=== PATIENT | male | born 1960 | race Caucasian/White ===

== ENCOUNTER 2017-01-18 08:28 | Emergency (ER) | payer OTHER ==
[2017-01-18] MEDS ORDERED: DEXAMETHASONE 10 MG/ML VIAL PO STA (11:55)
[2017-01-18] MEDS ORDERED: CHERRY SYRUP 10 ML UDC PO ONE (11:58)
[2017-01-18] MEDS ORDERED: DEXAMETHASONE 10 MG/ML VIAL ONE (11:58)
== END 2017-01-18 13:11 | disposition home or self-care (01) ==
DX: R07.89 Other chest pain (principal); H66.002 Acute suppurative otitis media without spontaneous rupture of ear drum, left ear; I48.91 Unspecified atrial fibrillation; Z87.442 Personal history of urinary calculi; Z79.82 Long term (current) use of aspirin
CPT/HCPCS: 36415; 71020; 80053; 81003; 83690; 84484; 85025; 99283; 99284; A9270

== ENCOUNTER 2017-01-19 21:40 | Emergency (ER) | payer OTHER ==
[2017-01-19] MEDS ORDERED: KETOROLAC 60 MG/2 ML VIAL IM STA (22:30)
[2017-01-19] MEDS ORDERED: oxyCOD/ACETAMIN 5 MG/325 MG TABLET PO STA (22:30)
[2017-01-19] MEDS ORDERED: KETOROLAC 60 MG/2 ML VIAL ONE (22:34)
[2017-01-19] MEDS ORDERED: oxyCOD/ACETAMIN 5 MG/325 MG TABLET PO ONE (22:34)
[2017-01-20] MEDS ORDERED: IOPAMIDOL-300 100 ML VIAL IVP ONE (01:22)
[2017-01-20] MEDS ORDERED: oxyCODONE/ACET 5/325 Prepack 4 PO ONE (02:04)
[2017-01-20] MEDS ORDERED: oxyCODONE/ACET 5/325 Prepack 4 PO STA (02:08)
== END 2017-01-20 02:09 | disposition home or self-care (01) ==
DX: R07.89 Other chest pain (principal); X50.0XXA Overexertion from strenuous movement or load, initial encounter; Y99.0 Civilian activity done for income or pay; I45.10 Unspecified right bundle-branch block; Z79.82 Long term (current) use of aspirin
CPT/HCPCS: 36415; 71275; 80053; 83690; 84484; 85025; 93005; 93010; 96372; 99284; A9270; Q9967

== ENCOUNTER 2017-03-02 16:10 | Outpatient (CLI) | payer OTHER | END 2017-03-02 16:11 | disposition short-term general hospital (02) | DX: R00.2 Palpitations (principal) | CPT/HCPCS: A0425; A0427 ==

== ENCOUNTER 2018-05-31 02:50 | Emergency (ER) | payer OTHER ==
[2018-05-31] MEDS ORDERED: diltiaZEM INJ 5 MG/ML VIAL IVP STA (03:00)
[2018-05-31 03:14] LABS: BASOPHILS # (AUTO) 0.1 10^3/uL (0.0-0.1); BASOPHILS % (AUTO) 1.2 %; EOSINOPHILS # (AUTO) 0.4 10^3/uL (0.0-0.7); EOSINOPHILS % (AUTO) 5.9 %; HGB - HEMOGLOBIN 16.6 g/dL (14.0-18.0); LYMPHOCYTES # (AUTO) 3.3 10^3/uL (1.5-3.5); MEAN CORPUSCULAR HEMOGLOBIN 31.6 pg (27.0-31.0); MEAN CORPUSCULAR HGB CONC 34.8 g/dL (32.0-36.0); MEAN CORPUSCULAR VOLUME 90.8 fL (80.0-94.0); MEAN PLATELET VOLUME 7.8 fL (7.4-11.4); MONOCYTES # (AUTO) 0.6 10^3/uL (0.0-1.0); MONOCYTES % (AUTO) 7.9 %; NEUTROPHILS # (AUTO) 3.1 10^3/uL (1.5-6.6); PLT - PLATELET COUNT 174 10^3/uL (130-450); RED BLOOD COUNT 5.26 10^6/uL (4.70-6.10); RED CELL DISTRIBUTION WIDTH 13.8 % (12.0-15.0); WHITE BLOOD COUNT 7.5 x10^3/uL (4.8-10.8)
[2018-05-31 03:25] LABS: ALBUMIN 4.5 g/dL (3.2-5.5); ALBUMIN/GLOBULIN RATIO 1.3 (1.0-2.2); BILIRUBIN,TOTAL 0.4 mg/dL (0.2-1.0); CALCIUM 8.7 mg/dL (8.5-10.3); CREATININE 0.9 mg/dL (0.6-1.2); MAGNESIUM 2.5 mg/dL (1.7-2.8); TOTAL PROTEIN 7.9 g/dL (6.7-8.2)
[2018-05-31] MEDS ORDERED: RIVAROXABAN 10 MG TABLET PO STA (04:37)
--- NOTE | 2018-05-31 05:02 | ED Physician Documentation ---
History of Present Illness - Stated complaint Stated Complaint: RAPID HEART RATE - Chief complaint Chief Complaint: Cardiac - History obtained from History obtained from: Patient, Family - Additonal information Additional information: 57-year-old male with a history of paroxysmal atrial fibrillation presented to the emergency department with a rapid heart rate which he awoke with this morning. The patient was recently seen at another emergency department for similar symptoms. The patient normally lives in sinus rhythm and does follow with cardiology and is on rate control medications. Yesterday evening the patient took his normal medications and consumed alcohol. This morning the patient awoke with a rapid heart rate and palpitations. Symptoms are described as moderate. Symptoms are similar to other episodes of atrial fibrillation she is experienced in the past. No other associated symptoms. Review of Systems Constitutional: denies: Fever, Chills Eyes: denies: Discharge Ears: denies: Ear pain Nose: denies: Congestion Throat: denies: Sore throat Cardiac: reports: Palpitations Respiratory: denies: Cough GI: denies: Abdominal Pain : denies: Dysuria Skin: denies: Laceration (s) Musculoskeletal: denies: Neck pain Neurologic: denies: Generalized weakness Immunocompromised: denies: Chemotherapy PD PAST MEDICAL HISTORY - Past Medical History Past Medical History: Yes Cardiovascular: Atrial fibrillation, Other Respiratory: None Endocrine/Autoimmune: None : Kidney stones Derm: None - Past Surgical History Past Surgical History: Yes Ortho: Arthroscopic surgery, Other Cardiovascular: Other HEENT: Tonsil/Adenoidectomy - Present Medications Home Medications: Ambulatory Orders Medication Instructions Recorded Confirmed Aspirin 81 mg PO DAILY 01/18/15 01/19/17 Losartan [Cozaar] 50 mg PO DAILY 01/18/15 01/19/17 Atorvastatin Calcium 20 mg PO DAILY 01/18/17 01/19/17 Diltiazem HCl [Diltiazem ER] 360 mg PO DAILY 01/18/17 01/19/17 Propafenone HCl 225 mg PO BID 05/31/18 05/31/18 Rivaroxaban [Xarelto] 20 mg PO DAILY #30 tablet 05/31/18 - Allergies Allergies/Adverse Reactions: Allergies Allergy/AdvReac Type Severity Reaction Status Date / Time lisinopril Allergy Unknown Verified 05/31/18 03:17 pseudoephedrine HCl * Allergy Unknown Verified 05/31/18 03:17 [From Sudafed] - Social History Does the pt smoke?: No Smoking Status: Never smoker Does the pt drink ETOH?: Yes Does the pt have substance abuse?: No - Immunizations Immunizations are current?: Yes - POLST Patient has POLST: No PD ED PE NORMAL - General General: Alert and oriented X 3, No acute distress - HEENT HEENT: Atraumatic, PERRL, EOMI, Ears normal - Neck Neck: Supple, no meningeal sign - Respiratory Respiratory: No respiratory distress, Clear bilaterally - Derm Derm: Normal color - Extremities Extremities: No deformity, No edema - Neuro Neuro: Alert and oriented X 3, Normal speech - Psych Psych: Normal affect PD ED PE EXPANDED - Cardiac Cardiac: Tachy, Irregularly irregular, Radial strong equal Results - Vitals Vitals: Vital Signs - 24 hr 05/31/18 05/31/18 05/31/18 02:50 03:10 03:14 Temperature 36.1 C L Heart Rate 143 H 106 H 93 Respiratory 13 17 14 Rate Blood Pressure 153/87 H 132/88 H 102/71 O2 Saturation 94 93 95 05/31/18 05/31/18 05/31/18 03:19 03:24 03:35 Temperature Heart Rate 94 76 73 Respiratory 16 17 14 Rate Blood Pressure 134/65 H 113/65 118/69 O2 Saturation 95 93 95 05/31/18 05/31/18 03:59 04:43 Temperature 36.2 C L Heart Rate 66 81 Respiratory 17 18 Rate Blood Pressure 118/69 124/87 H O2 Saturation 94 96 Oxygen O2 Source Room air - EKG (time done) 02: 57 Rate: Rate (enter#) Rhythm: Atrial fibrillation Intervals: QRS normal Ischemia: Non specific changes - Labs Labs: Laboratory Tests 05/31/18 05/31/18 05/31/18 03:00 03:00 03:00 WBC 7.5 RBC 5.26 Hgb 16.6 Hct 47.8 MCV 90.8 MCH 31.6 H MCHC 34.8 RDW 13.8 Plt Count 174 MPV 7.8 Neut # (Auto) 3.1 Lymph # (Auto) 3.3 Dare # (Auto) 0.6 Eos # (Auto) 0.4 Baso # (Auto) 0.1 Absolute Nucleated RBC 0.00 Nucleated RBC % 0.0 Sodium 141 Potassium 3.7 Chloride 108 Carbon Dioxide 24 Anion Gap 9.0 BUN 17 Creatinine 0.9 Estimated GFR (MDRD) 87 L Glucose 130 H Calcium 8.7 Magnesium 2.5 Total Bilirubin 0.4 AST 43 H ALT 62 H Alkaline Phosphatase 60 Troponin I < 0.04 B-Natriuretic Peptide Total Protein 7.9 Albumin 4.5 Globulin 3.4 Albumin/Globulin Ratio 1.3 Lipase 47 05/31/18 03:00 WBC RBC Hgb Hct MCV MCH MCHC RDW Plt Count MPV Neut # (Auto) Lymph # (Auto) Dare # (Auto) Eos # (Auto) Baso # (Auto) Absolute Nucleated RBC Nucleated RBC % Sodium Potassium Chloride Carbon Dioxide Anion Gap BUN Creatinine Estimated GFR (MDRD) Glucose Calcium Magnesium Total Bilirubin AST ALT Alkaline Phosphatase Troponin I B-Natriuretic Peptide 25 Total Protein Albumin Globulin Albumin/Globulin Ratio Lipase PD MEDICAL DECISION MAKING - ED course ED course: I discussed the case with the on-call rn community health for the [facility] Dr. Gonzalez: I discussed with her the patient's past medical history, the patient's presentation today and findings. Since, the patient now is rate controlled but still in atrial fibrillation she recommends starting the patient on anticoagulation with Xarelto. She agrees with the plan for discharge home since the patient is rate controlled and has a long history of paroxysmal atrial fibrillation and is already on rate control medications. She recommends close follow-up with the patient's primary rn community health. On final evaluation of the patient he still is in atrial fibrillation but is rate controlled, I discussed with him the findings and plan. The patient understands and agrees. The patient appears appropriate for discharge home. I discussed with him warning signs and recommended returning to the emergency department immediately for worsening or any concerns. - Sepsis Event Vital Signs: Vital Signs - 24 hr 05/31/18 05/31/18 05/31/18 02:50 03:10 03:14 Temperature 36.1 C L Heart Rate 143 H 106 H 93 Respiratory 13 17 14 Rate Blood Pressure 153/87 H 132/88 H 102/71 O2 Saturation 94 93 95 05/31/18 05/31/18 05/31/18 03:19 03:24 03:35 Temperature Heart Rate 94 76 73 Respiratory 16 17 14 Rate Blood Pressure 134/65 H 113/65 118/69 O2 Saturation 95 93 95 05/31/18 05/31/18 03:59 04:43 Temperature 36.2 C L Heart Rate 66 81 Respiratory 17 18 Rate Blood Pressure 118/69 124/87 H O2 Saturation 94 96 Oxygen O2 Source Room air Departure - Departure Disposition: 01 Home, Self Care Clinical Impression: Atrial fibrillation with RVR Condition: Good Instructions: Atrial Fibrillation Dc, ED Afib Follow-Up: CARLTON BLISS MD [Primary Care Provider] - Prescriptions: Rivaroxaban [Xarelto] 20 mg PO DAILY #30 tablet Comments: Please follow-up with your rn community health this Saturday for further workup and management of your atrial fibrillation. Please return to the emergency department immediately for worsening symptoms or any concerns
[2018-05-31 05:26] VITALS: BP 126/86
== END 2018-05-31 05:24 | disposition home or self-care (01) ==
LOC: ED 02:50
DX: I48.0 Paroxysmal atrial fibrillation (principal); Z79.82 Long term (current) use of aspirin
CPT/HCPCS: 36415; 80053; 83690; 83735; 83880; 84484; 85025; 93005; 96374; 99284; A9270

== ENCOUNTER 2023-01-05 02:28 | Emergency (ER) | payer OTHER ==
[2023-01-05] MEDS ORDERED: SODIUM CHLORIDE 0.9% 500 ML IV STA (03:01)
[2023-01-05 03:10] LABS: BASOPHILS # (AUTO) 0.1 10^3/uL (0.0-0.1); BASOPHILS % (AUTO) 1.1 %; EOSINOPHILS # (AUTO) 0.4 10^3/uL (0.0-0.7); EOSINOPHILS % (AUTO) 5.3 %; HCT - HEMATOCRIT 43.3 % (42.0-52.0); HGB - HEMOGLOBIN 15.2 g/dL (14.0-18.0); LYMPHOCYTES # (AUTO) 2.7 10^3/uL (1.5-3.5); LYMPHOCYTES % (AUTO) 35.9 %; MEAN CORPUSCULAR HEMOGLOBIN 31.2 pg (27.0-31.0); MEAN CORPUSCULAR HGB CONC 35.1 g/dL (32.0-36.0); MEAN CORPUSCULAR VOLUME 88.9 fL (80.0-94.0); MEAN PLATELET VOLUME 9.8 fL (7.4-11.4); MONOCYTES # (AUTO) 0.5 10^3/uL (0.0-1.0); MONOCYTES % (AUTO) 6.6 %; NEUTROPHILS # (AUTO) 3.9 10^3/uL (1.5-6.6); NEUTROPHILS % (AUTO) 50.8 %; PLT - PLATELET COUNT 142 10^3/uL (130-450); RED BLOOD COUNT 4.87 10^6/uL (4.70-6.10); RED CELL DISTRIBUTION WIDTH 12.8 % (12.0-15.0); WHITE BLOOD COUNT 7.6 x10^3/uL (4.8-10.8)
--- NOTE | 2023-01-05 03:11 | ED Physician Documentation ---
History of Present Illness - Stated complaint Stated Complaint: CHEST PX - Chief complaint Chief Complaint: Cardiac - History obtained from History obtained from: Patient - Additonal information Additional information: Patient is a 62-year-old male with a history of atrial fibrillation presenting for evaluation of feeling palpitations since Saturday morning. Patient reports having 2 prior ablations for A-fib with the last being in 2018. He says he has intermittently had episodes of A-fib since that time but they are usually short. Since Saturday morning he has felt frequent palpitations which she describes as his heart skipping a beat.It seems to occur about every 1/2 hour. There is no associated chest pain or pressure, dizziness, lightheadedness, difficulty breathing. He reports having 2 alcoholic beverages last night. There are no exacerbating or alleviating factors to his symptoms. He called EMS and when he got into the ambulance states that his symptoms have subsided and he is no l onger feeling them. Review of Systems Constitutional: denies: Fever Cardiac: reports: Palpitations. denies: Chest pain / pressure Respiratory: denies: Dyspnea, Cough GI: denies: Abdominal Pain, Vomiting, Diarrhea Musculoskeletal: denies: Back pain Neurologic: denies: Headache PD PAST MEDICAL HISTORY - Past Medical History Cardiovascular: Hypertension, High cholesterol, Atrial fibrillation, Other Respiratory: None Endocrine/Autoimmune: None : Kidney stones Derm: None - Past Surgical History Past Surgical History: Yes Ortho: Arthroscopic surgery, Other Cardiovascular: Other HEENT: Tonsil/Adenoidectomy - Present Medications Home Medications: Ambulatory Orders Medication Instructions Recorded Confirmed Aspirin 81 mg PO DAILY 01/18/15 01/05/23 Losartan [Cozaar] 100 mg PO DAILY 01/18/15 01/05/23 Rosuvastatin Calcium [Crestor] 20 mg PO HS 01/05/23 01/05/23 hydroCHLOROthiazide [Hydrodiuril] 25 mg PO DAILY 01/05/23 01/05/23 - Allergies Allergies/Adverse Reactions: Allergies Allergy/AdvReac Type Severity Reaction Status Date / Time lisinopril Allergy Unknown Verified 01/05/23 02:47 pseudoephedrine HCl * Allergy Unknown Verified 01/05/23 02[facility] - Social History Does the pt smoke?: No Smoking Status: Never smoker Does the pt drink ETOH?: Yes ETOH Use: Wine Does the pt have substance abuse?: No - Immunizations Immunizations are current?: Yes - POLST Patient has POLST: No PD ED PE NORMAL - General General: Alert and oriented X 3, No acute distress, Well developed/nourished - HEENT HEENT: Atraumatic - Neck Neck: Supple, no meningeal sign - Cardiac Cardiac: RRR, No murmur - Respiratory Respiratory: No respiratory distress, Clear bilaterally - Abdomen Abdomen: Soft, Non tender - Derm Derm: Warm and dry - Extremities Extremities: No edema, No calf tenderness / cord - Neuro Neuro: Normal speech Results - Vitals Vitals: Vital Signs - 24 hr 01/05/23 01/05/23 01/05/23 02:42 03:00 03:30 Temperature 36.9 C Heart Rate 80 75 70 Respiratory 17 13 16 Rate Blood Pressure 120/93 H 124/56 L 124/54 L O2 Saturation 95 97 95 01/05/23 04:02 Temperature 37.2 C Heart Rate 71 Respiratory 16 Rate Blood Pressure 124/54 L O2 Saturation 95 Oxygen O2 Source Room air - EKG (time done) 0235 EKG releavant findings:: EKG personally interpreted by author of this note. Relevant findings are: Rate 81, normal sinus rhythm, no arrhythmia, No acute ischemia Rate: Rate (enter#) (81) Rhythm: NSR Intervals: No: Prolonged QT Ischemia: No: ST elevation c/w ischemia - Labs Labs: Laboratory Tests 01/05/23 01/05/23 01/05/23 02:40 02:40 02:40 WBC 7.6 RBC 4.87 Hgb 15.2 Hct 43.3 MCV 88.9 MCH 31.2 H MCHC 35.1 RDW 12.8 Plt Count 142 MPV 9.8 Neut # (Auto) 3.9 Lymph # (Auto) 2.7 Butler # (Auto) 0.5 Eos # (Auto) 0.4 Baso # (Auto) 0.1 Absolute Nucleated RBC 0.00 Nucleated RBC % 0.0 Sodium 135 Potassium 3.5 Chloride 101 Carbon Dioxide 25 Anion Gap 9.0 BUN 16 Creatinine 1.0 Estimated GFR (MDRD) 76 L Glucose 129 H Calcium 8.8 Magnesium 1.8 Total Bilirubin 0.9 AST 53 H ALT 56 Alkaline Phosphatase 58 Total Protein 7.6 Albumin 3.5 Globulin 4.1 Albumin/Globulin Ratio 0.9 L TSH 4.72 PD Medical Decision Making - ED course Complexity details: reviewed results, re-evaluated patient, d/w patient ED course: Patient presenting for evaluation of palpitations. He has a known history of atrial fibrillation. He denies chest pain or difficulty breathing. He has no calf tenderness or swelling. His EKG is reviewed and demonstrates a normal sinus rhythm. I also reviewed at the EMS rhythm strip and it also appears to be a sinus rhythm with occasional PVC or PAC. Patient remained in sinus rhythm during his ED course. He occasionally would feel an extra beat which appeared to be a PAC or PVC on the monitor. There was no alarming of the monitor.These were infrequent episodes. His labs were reviewed including CBC and chemistries without significant findings. He was given IV fluids. He is feeling much better here. He has no chest pain or shortness of breath to suggest ACS, dissection or PE.He did have alcohol this evening and felt that his symptoms that were becoming worse after that. I did encourage that he should refrain from alcohol use and also make sure to avoid caffeine as this could exacerbate his symptoms. He has a ui ux developer through [place]. I instructed him on the need for close follow-up with cardiology as well as concerning symptoms to return for. Departure - Departure Disposition: 01 Home, Self Care Clinical Impression: Palpitations Condition: Stable Instructions: Premature Ventricular Contract About, Premature Ventricular Contract Tx, ED Palpitations Comments: You were evaluated for palpitations. Your heart is in a regular rhythm but you are occasionally having an extra beat called a PAC or PVC. Please continue to stay hydrated this weekend and avoid substances such as caffeine or alcohol. I would recommend follow-up with your ui ux developer. But anytime you have any worsening symptoms such as continued fluttering feeling, chest pain, difficulty breathing, feeling lightheaded or have any other concerns please consider return to the emergency department. Discharge Date/Time: 01/05/23 04:04
[2023-01-05 03:18] LABS: ALBUMIN 3.5 g/dL (3.2-5.5); ALBUMIN/GLOBULIN RATIO 0.9 (1.0-2.2); BILIRUBIN,TOTAL 0.9 mg/dL (0.2-1.0); CALCIUM 8.8 mg/dL (8.5-10.3); MAGNESIUM 1.8 mg/dL (1.7-2.8); POTASSIUM 3.5 mmol/L (3.5-5.0); TOTAL PROTEIN 7.6 g/dL (6.7-8.2)
[2023-01-05 03:40] VITALS: BP 124/54
--- NOTE | 2023-01-05 07:31 | XRAY Report ---
PROCEDURE: Chest 1 View X-Ray INDICATIONS: palpitations TECHNIQUE: One view of the chest was acquired. COMPARISON: 01/18/2017 FINDINGS: Surgical changes and devices: None. Lungs and pleura: No pleural effusions or pneumothorax. Lungs are clear. Mediastinum: Mediastinal contours appear normal. Heart size is normal. Bones and chest wall: No suspicious bony lesions. Overlying soft tissues appear unremarkable. IMPRESSION: No acute cardiopulmonary disease. Final interpretation concordant with preliminary report. Reviewed by: Lata Card MD on 01/05/2023 7:30 AM PST Approved by: Lata Card MD on 01/05/2023 7:30 AM [facility] Station ID: [id number]
== END 2023-01-05 04:04 | disposition home or self-care (01) ==
LOC: EDUNIT# → ED 02:28
DX: R00.2 Palpitations (principal); I48.91 Unspecified atrial fibrillation; I10 Essential (primary) hypertension; E78.00 Pure hypercholesterolemia, unspecified; Z79.82 Long term (current) use of aspirin; Z79.899 Other long term (current) drug therapy
CPT/HCPCS: 36415; 80053; 83735; 84443; 85025; 93005; 99283; 99284

== ENCOUNTER → 2023-01-05 | Outpatient (CLI) | payer OTHER | END | disposition critical access hospital (66) | LOC: EMS 02:06 | DX: R07.9 Chest pain, unspecified (principal) ==

== ENCOUNTER 2023-06-23 20:18 | Emergency (ER) | payer OTHER ==
[2023-06-23 20:47] LABS: BASOPHILS % (AUTO) 0.4 %; EOSINOPHILS # (AUTO) 0.2 10^3/uL (0.0-0.7); EOSINOPHILS % (AUTO) 2.6 %; HCT - HEMATOCRIT 44.2 % (42.0-52.0); HGB - HEMOGLOBIN 15.3 g/dL (14.0-18.0); LYMPHOCYTES # (AUTO) 2.2 10^3/uL (1.5-3.5); LYMPHOCYTES % (AUTO) 25.2 %; MEAN CORPUSCULAR HEMOGLOBIN 29.8 pg (27.0-31.0); MEAN CORPUSCULAR HGB CONC 34.6 g/dL (32.0-36.0); MEAN PLATELET VOLUME 8.9 fL (7.4-11.4); MONOCYTES # (AUTO) 0.7 10^3/uL (0.0-1.0); MONOCYTES % (AUTO) 7.9 %; NEUTROPHILS # (AUTO) 5.7 10^3/uL (1.5-6.6); NEUTROPHILS % (AUTO) 63.7 %; PLT - PLATELET COUNT 135 10^3/uL (130-450); RED BLOOD COUNT 5.14 10^6/uL (4.70-6.10); RED CELL DISTRIBUTION WIDTH 13.5 % (12.0-15.0); WHITE BLOOD COUNT 8.9 x10^3/uL (4.8-10.8)
--- NOTE | 2023-06-23 20:56 | XRAY Report ---
PROCEDURE: Chest 1 View X-Ray INDICATIONS: Chest pain. Palpitations. TECHNIQUE: One view of the chest was acquired. COMPARISON: None. FINDINGS: Surgical changes and devices: None. Lungs and pleura: No pleural effusions or pneumothorax. Lungs are clear. Mediastinum: Mediastinal contours appear normal. Heart size is normal. Bones and chest wall: No suspicious bony lesions. Overlying soft tissues appear unremarkable. IMPRESSION: No acute cardiopulmonary process. Reviewed by: Ovidio Ansari on 06/23/2023 8:54 PM PDT Approved by: Ovidio Ansari on 06/23/2023 8:54 PM PDT Station ID: [id number]
[2023-06-23 21:03] LABS: ALBUMIN 4.1 g/dL (3.2-5.5); ALBUMIN/GLOBULIN RATIO 1.1 (1.0-2.2); BILIRUBIN,TOTAL 1.4 mg/dL (0.2-1.0); CALCIUM 9.6 mg/dL (8.5-10.3); CREATININE 1.1 mg/dL (0.6-1.3); POTASSIUM 3.5 mmol/L (3.5-4.5); TOTAL PROTEIN 7.8 g/dL (6.4-8.9)
--- NOTE | 2023-06-23 21:06 | ED Physician Documentation ---
History of Present Illness - Stated complaint Stated Complaint: HEART PALP/BACK/LT HIP PX - Chief complaint Chief Complaint: Cardiac - History obtained from History obtained from: Patient - Additonal information Additional information: 62-year-old man with past medical history of chronic back pain status post discectomy, A-fib with multiple ablations, web applications architect Dr. Castellon with the [facility], presents with left back pain radiating to the hip ongoing that is worse tonight and associated with increased palpitations. Patient has had palpitations on and off for the past couple of months. He had a ZIO monitor for 4 days recently that showed multiple PVCs. Also states he has not been sleeping well. Denies chest pain shortness of breath nausea or dizziness. Review of Systems Cardiac: reports: Palpitations. denies: Chest pain / pressure Respiratory: denies: Dyspnea GI: denies: Nausea PD PAST MEDICAL HISTORY - Past Medical History Cardiovascular: Hypertension, High cholesterol, Atrial fibrillation, Other Respiratory: None Endocrine/Autoimmune: None : Kidney stones Derm: None - Past Surgical History Past Surgical History: Yes Ortho: Arthroscopic surgery, Other Cardiovascular: Other HEENT: Tonsil/Adenoidectomy - Present Medications Home Medications: Ambulatory Orders Medication Instructions Recorded Confirmed Aspirin 81 mg PO DAILY 01/18/15 01/05/23 Losartan [Cozaar] 100 mg PO DAILY 01/18/15 01/05/23 Rosuvastatin Calcium [Crestor] 20 mg PO HS 01/05/23 01/05/23 hydroCHLOROthiazide [Hydrodiuril] 25 mg PO DAILY 01/05/23 01/05/23 Oxycodone HCl/Acetaminophen 1 each PO Q4H PRN #10 tablet 06/24/23 [Percocet 10-325 mg Tablet] atenoloL [Tenormin] 25 mg PO DAILY #30 tablet 06/24/23 - Allergies Allergies/Adverse Reactions: Allergies Allergy/AdvReac Type Severity Reaction Status Date / Time lisinopril Allergy Unknown Verified 06/23/23 20:21 pseudoephedrine HCl * Allergy Unknown Verified 06/23/23 20:21 [From Sudafed] - Social History Does the pt smoke?: No Smoking Status: Never smoker Does the pt drink ETOH?: Yes Does the pt have substance abuse?: No - Immunizations Immunizations are current?: Yes - POLST Patient has POLST: No PD ED PE NORMAL - Vitals Vital signs reviewed: Yes - General General: Alert and oriented X 3, No acute distress, Well developed/nourished - HEENT HEENT: Atraumatic, PERRL, EOMI, Moist mucous membranes, Pharynx benign - Neck Neck: Supple, no meningeal sign - Cardiac Cardiac: RRR - Respiratory Respiratory: No respiratory distress, Clear bilaterally - Abdomen Abdomen: Non tender, Non distended - Derm Derm: Normal color, Warm and dry - Extremities Extremities: No deformity - Neuro Neuro: Alert and oriented X 3, No motor deficit, No sensory deficit - Psych Psych: Normal mood, Normal affect Results - Vitals Vitals: Vital Signs - 24 hr 06/23/23 06/23/23 06/23/23 20:22 20:54 21:24 Temperature 36.8 C Heart Rate 87 86 82 Respiratory 20 19 20 Rate Blood Pressure 206/76 H 177/75 H 168/69 H O2 Saturation 96 96 96 06/23/23 06/23/23 06/23/23 22:02 22:57 23:52 Temperature Heart Rate 83 72 71 Respiratory 16 16 19 Rate Blood Pressure 155/71 H 141/97 H 142/79 H O2 Saturation 98 98 94 Oxygen O2 Source Room air - EKG (time done) 2036 EKG releavant findings:: EKG personally interpreted by author of this note. Relevant findings are: Rate: Rate (enter#) (86) Rhythm: NSR Stanley: Normal Intervals: Normal CT QRS: Normal Ischemia: Normal ST segments Other comments: Other comments (ventricular bigeminy - new onset) - Labs Labs: Laboratory Tests 06/23/23 06/23/23 06/23/23 20:41 20:41 20:41 WBC 8.9 RBC 5.14 Hgb 15.3 Hct 44.2 MCV 86.0 MCH 29.8 MCHC 34.6 RDW 13.5 Plt Count 135 MPV 8.9 Neut # (Auto) 5.7 Lymph # (Auto) 2.2 Graves # (Auto) 0.7 Eos # (Auto) 0.2 Baso # (Auto) 0.0 Absolute Nucleated RBC 0.00 Nucleated RBC % 0.0 Sodium 135 Potassium 3.5 Chloride 102 Carbon Dioxide 27 Anion Gap 6.0 BUN 16 Creatinine 1.1 Estimated GFR (MDRD) 68 L Glucose 130 H Calcium 9.6 Magnesium 1.6 L Total Bilirubin 1.4 H AST 23 ALT 21 Alkaline Phosphatase 57 Troponin I High Sens 4.5 Total Protein 7.8 Albumin 4.1 Globulin 3.7 Albumin/Globulin Ratio 1.1 Lipase 47 PD Medical Decision Making - ED course ED course: 62-year-old man presents with acute on chronic left back pain radiating to the hip and chronic palpitations worsening tonight. He was found to have multiple PVCs on ZIO monitoring by his web applications architect Dr. Castellon but no specific intervention was taken. Patient's EKG is showing bigeminy here in the emergency department. He is asymptomatic at present with exception of palpitations which she states are uncomfortable. Call placed to his web applications architect. CBC, abdominal panel, EKG, chest x-ray employed without acute emergent findings. Cardiac monitoring underway. IV morphine provided for pain with relief. HR normalized on court monitor, no longer in bigeminy. d/w web applications architect tombstone polisher for Dr. Patel (Dr. Earl) who recommends placing patient on beta merry and have him follow up in clinic. d/w patient who is requesting additional pain medication. will provide prepack and send him a prescription until he can see his pcp. return precautions given. Departure - Departure Disposition: 01 Home, Self Care Clinical Impression: Back pain, Palpitations, Bigeminy Condition: Stable Instructions: Premature Ventricular Contract Tx Follow-Up: Елена Gonzalez MD [Provider Admit Priv/Credential] - Prescriptions: Oxycodone HCl/Acetaminophen [Percocet 10-325 mg Tablet] 1 each PO Q4H PRN #10 tablet PRN Reason: Pain atenoloL [Tenormin] 25 mg PO DAILY #30 tablet Comments: You were seen in the ED for bigeminy (heart rhythm issue where each normal heartbeat is followed by a skipped beat or "PVC"). I spoke with a web applications architect tombstone polisher for Dr. Rebolledo who recommended starting atenolol, a beta merry blood pressure medicine. This was sent to [facility] in [place] along with pain med prescription. Referral was provided to a web applications architect with the [facility] (see enclosed). Follow up with your primary care provider as well. Please return to the emergency department if you have new or worsening symptoms or other concerns. Forms: PCP List
[2023-06-23 21:07] LABS: TROPONIN I HIGH SENSITIVITY 4.5 ng/L (2.3-19.7)
[2023-06-23] MEDS ORDERED: MORPHINE 2 MG/ML CARPUJECT IVP STA (21:16)
[2023-06-23] MEDS ORDERED: PROPRANOLOL 10 MG TABLET PO STA (23:51)
[2023-06-24] MEDS ORDERED: oxyCODONE/ACET 5/325 Prepack 4 PO STA (00:08)
[2023-06-24] MEDS ORDERED: HYDROmorphone 1 MG/ML CARPUJECT IVP STA (00:08)
[2023-06-24 00:38] VITALS: BP 133/73; O2SAT 98
== END 2023-06-24 00:45 | disposition home or self-care (01) ==
LOC: ED 20:18
DX: M54.9 Dorsalgia, unspecified (principal); R00.8 Other abnormalities of heart beat; I10 Essential (primary) hypertension; I48.91 Unspecified atrial fibrillation
CPT/HCPCS: 36415; 71045; 80053; 83690; 83735; 84484; 85025; 93005; 96374; 96375; 99284; A9270; J1170

== ENCOUNTER 2023-11-05 18:47 | Emergency (ER) | payer OTHER ==
[2023-11-05 19:00] VITALS: O2SAT 97
--- NOTE | 2023-11-05 19:31 | ED Physician Documentation ---
PD HPI FOCAL NEURO - Stated complaint Stated Complaint: FACIAL DROOP/HBP - Chief complaint Chief Complaint: Neuro - History obtained from History obtained from: Patient - History of Present Illness Timing - onset: Yesterday Timing - details: Gradual onset, Still present Severity of deficit: Mild Weakness: Face, Left. No: Arm, Hand, Leg Numbness: No: Face, Arm, Hand, Leg Associated symptoms: Other (BP noted elevated at home and at Walk In. He states it is usually controlled with his Losartan.). No: Headache (has pain at left ear canal with few small bumps/blisters noted there. Has some pain and tenderness there prior to the skin lesions. Has pain in ear as well. No head ache.) Baseline status: positive: A&OX3, ambulatory, indep Similar symptoms before: Has not had sx before Recently seen: Clinic (seen at [facility] and Dx wiht "ear infection" but referred to ER for concern of CVA vs facial nerve.) Review of Systems Constitutional: denies: Fever, Chills Nose: denies: Rhinorrhea / runny nose, Congestion Throat: denies: Sore throat Respiratory: denies: Cough Neurologic: reports: Focal weakness (jest left side of face, gradual onset over past day.). denies: Numbness, Altered mental status, Headache, Head injury PD PAST MEDICAL HISTORY - Past Medical History Past Medical History: Yes Cardiovascular: Hypertension, High cholesterol, Atrial fibrillation, Other Respiratory: None Endocrine/Autoimmune: None : Kidney stones Derm: None - Past Surgical History Past Surgical History: Yes Ortho: Arthroscopic surgery, Other Cardiovascular: Other HEENT: Tonsil/Adenoidectomy - Present Medications Home Medications: Ambulatory Orders Medication Instructions Recorded Confirmed Aspirin 81 mg PO DAILY 01/18/15 01/05/23 Losartan [Cozaar] 100 mg PO DAILY 01/18/15 01/05/23 Rosuvastatin Calcium [Crestor] 20 mg PO HS 01/05/23 01/05/23 hydroCHLOROthiazide [Hydrodiuril] 25 mg PO DAILY 01/05/23 01/05/23 Oxycodone HCl/Acetaminophen 1 each PO Q4H PRN #10 tablet 06/24/23 [Percocet 10-325 mg Tablet] atenoloL [Tenormin] 25 mg PO DAILY #30 tablet 08/28/23 Amoxicillin 500 mg PO TID #20 cap 11/05/23 Neomycin/Polymyx/Hc Otic Drops 4 drops OT QID 5 Days #10 ml 11/05/23 [Cortisporin Ear Susp] Valacyclovir HCl [Valtrex] 1,000 mg PO TID #15 tablet 11/05/23 dexAMETHasone [Decadron] 4 mg PO DAILY #5 tablet 11/05/23 - Allergies Allergies/Adverse Reactions: Allergies Allergy/AdvReac Type Severity Reaction Status Date / Time lisinopril Allergy Unknown Verified 11/05/23 18:51 pseudoephedrine HCl * Allergy Unknown Verified 11/05/23 18:51 [From Sudafed] - Social History Does the pt smoke?: No Smoking Status: Never smoker Does the pt drink ETOH?: Yes Does the pt have substance abuse?: No - Immunizations Immunizations are current?: Yes - POLST Patient has POLST: No PD ED PE NORMAL - Vitals Vital signs reviewed: Yes - General General: Alert and oriented X 3, No acute distress, Well developed/nourished - HEENT HEENT: Pharynx benign. No: Ears normal (right is normal. LEft ear canal and outer tragus area with discrete red-based blister lesions. Consider staph but most likely herpetic, such as shingles or HSV. ) - Neck Neck: Supple, no meningeal sign, No adenopathy - Derm Derm: Normal color, Warm and dry - Neuro Neuro: Alert and oriented X 3, No sensory deficit, Normal speech. No: institutional custodian 2-12 intact (facial weakness left side including forehead c/w facial nerve palsy. Able to close eye still. ) Results - Vitals Vitals: Oxygen O2 Source Room air PD Medical Decision Making - ED course Complexity details: reviewed results (BP noted elevated earlier and at the [facility]. He states it is usually in normal range. I would not treat the BP at this time as likely reactive to the situation and not part of it. He had not had his Losartan today yet, so given extra dose. ), considered differential (pn exam, the patient has weakness of left face, with normal sensation to touch and pinprick. The weakness involves the forehead as well, very c/w facial nerve palsy. Has discrete red based bumpy lesions ear canal and outer ear, appearing most likely herpetic (shingles vs HSV).), d/w patient Departure - Departure Disposition: 01 Home, Self Care Clinical Impression: Facial nerve palsy, Infection of left ear canal, Elevated blood pressure reading Otitis media Qualifiers: Otitis media type: suppurative Chronicity: acute Laterality: left Recurrence: non-recurrent Spontaneous tympanic membrane rupture: without spontaneous rupture Qualified Code(s): H66.002 - Acute suppurative otitis media without spontaneous rupture of ear drum, left ear Condition: Stable Record reviewed to determine appropriate education?: Yes Instructions: ED Codorus Palsy, ED Otitis Externa Follow-Up: Dharmesh Casillas NP [Primary Care Provider] - Prescriptions: Amoxicillin 500 mg PO TID #20 cap Neomycin/Polymyx/Hc Otic Drops [Cortisporin Ear Susp] 4 drops OT QID 5 Days #10 ml dexAMETHasone [Decadron] 4 mg PO DAILY #5 tablet Valacyclovir HCl [Valtrex] 1,000 mg PO TID #15 tablet Comments: This looks to be inflammation/irritation of the facial nerve. It is characteristic of a facial nerve palsy or weakness sometimes called Mendoza's palsy. In this case it looks likely secondary or related to the infection through the ear canal and eardrum as that is the area where the facial nerve comes out. I would treat the ear infection with both antibiotics for concern of bacterial infection with the skin lesions. However it does have a look/appearance of possible herpetic/zoster type lesion so it also had valacyclovir antiviral medication. Additionally dexamethasone anti-inflammatory to help with inflammation of the nerve daily for 5 more days. Tylenol or ibuprofen if needed for pains. This may be increased in severity regarding the facial weakness for another day or 2 until the inflammation starts receding. If you find that you are not closing the eye sufficiently, you can use moisturizing eyedrops several times daily so it does not get dried. Your blood pressure was elevated but this is likely more reactive. However since you state your blood pressures been running a little on the high side prior to this, it could be reasonable to add hydrochlorothiazide daily to your current metoprolol and losartan. Check your blood pressure daily or so over the next week and see how the trend is. Corroborates the plan with your ca rdiologist. I would anticipate plateauing of your facial weakness and skin rash over the next day or 2 and then improving over several days to week. This would be hopefully sooner and shorter than a typical Mendoza's palsy symptoms related to an infection rather than idiopathic. I sent your prescriptions to your preferred pharmacy. Forms: PCP List Discharge Date/Time: 11/05/23 21:29
[2023-11-05] MEDS: LOSARTAN 50 MG TABLET PO STA (20:31)
[2023-11-05] MEDS: NEOMYCIN/POLYMYX/HC OTIC DROPS LEFTEAR STA (20:31)
[2023-11-05] MEDS: valACYclovir 500 MG TABLET PO STA (20:31)
[2023-11-05] MEDS: AMOXICILLIN 250 MG CAPSULE PO STA (20:31)
[2023-11-05] MEDS: dexAMETHasone 4 MG TABLET PO STA (20:31)
[2023-11-05 21:37] VITALS: BP 168/87
== END 2023-11-05 21:29 | disposition home or self-care (01) ==
LOC: ED 18:47
DX: G51.0 Bell's palsy (principal); H66.002 Acute suppurative otitis media without spontaneous rupture of ear drum, left ear; I10 Essential (primary) hypertension; E78.00 Pure hypercholesterolemia, unspecified; I48.91 Unspecified atrial fibrillation; Z79.02 Long term (current) use of antithrombotics/antiplatelets; Z79.899 Other long term (current) drug therapy
CPT/HCPCS: 99283; 99284; A9270; J8540